=== PATIENT | female | born 1995 | race Caucasian/White ===

== ENCOUNTER 2018-08-12 04:10 | Emergency (ER) | payer OTHER, SELFPAY ==
[2018-08-12 04:23] VITALS: BP 143/89; PULSE 112; RESP 22; TEMP 36.1; O2SAT 97
[2018-08-12 04:49] VITALS: PULSE 112; RESP 22; TEMP 36.1; O2SAT 97; BMI 21.1
[2018-08-12 05:25] LABS: Add Manual Diff / Slide Review NO; Basophils Percent Auto 0.4 % (0-2); Eosinophils Percent Auto 2.1 % (2-4); Hemoglobin 13.7 g/dL (12.0-16.0); Lymphocytes Percent Auto 15.3 % (25-40); Mean Corpuscular HGB Conc 34.2 % (30-36); Mean Corpuscular Hemoglobin 28.3 PG (26-34); Mean Corpuscular Volume 82.7 fL (80-100); Neutrophils Absolute Auto 11300 /uL (3000-5900); Neutrophils Percent Auto 73.2 % (50-75); Platelet Count 410 X10^3/uL (150-400); Red Blood Cell Count 4.83 X10^6/uL (4.0-5.2); Red Cell Distribution Width 12.9 % (11.6-14.8); White Blood Cell Count 15.4 X10^3/uL (4.5-11.0)
[2018-08-12 05:30] LABS: INR 1.2 (0.9-1.3); Prothrombin Time 12.7 SECONDS (10.1-12.7)
[2018-08-12 05:33] LABS: PTT Partial Thromboplastin Tim 31 SECONDS (26.4-36.2)
[2018-08-12 05:34] LABS: Alanine Aminotransferase 19 IU/L (9-52); Albumin Globulin Ratio 1.2 (1.0-2.8); Alkaline Phosphatase 54 U/L (38-126); Aspartate Aminotransferase 20 IU/L (14-36); Bilirubin Total 0.3 mg/dL (0.2-1.3); Blood Urea Nitrogen 7 mg/dL (7-17); Calcium 8.9 mg/dL (8.4-10.2); Carbon Dioxide 23 mmol/L (22-32); Chloride 104 mmol/L (98-107); Estimated Glomerular Filt Rate > 60.0 mL/min (>60); Globulin 3.3 g/dL (1.7-4.1); Glucose 105 mg/dL (70-100); HEMOLYSIS < 15 (0-50); Lipase 81 U/L (23-300); Potassium 3.3 mmol/L (3.4-5.1); Sodium 139 mmol/L (137-145); Total Protein 7.3 g/dL (6.3-8.2)
[2018-08-12] MEDS: SODIUM CHLORIDE 0.9% 1,000 ML 1000 ML IV (05:38)
[2018-08-12] MEDS: ONDANSETRON 4 MG/2 ML INJ IV (05:38)
[2018-08-12] MEDS: KETOROLAC 60 MG/2 ML VIAL 30 MG IV (05:38)
[2018-08-12 06:37] LABS: Bacteria Urine Many (>30); Culture Indicated Urine Cult Not Indicated; Mucus Urine 3+ (Negative); RBC Urine 5-10/HPF (0-5/HPF); Squamous Epithelial Cell Urine 10-30 /HPF; WBC Urine 1-5/HPF (0-5/HPF)
--- NOTE | 2018-08-12 06:51 | DI.CT.S_ITS ---
PROCEDURE: CT ABDOMEN PELVIS W CON INDICATIONS: right flank pain TECHNIQUE: After the administration of intravenous contrast, 5 mm thick sections acquired from the diaphragm to the symphysis. 5 mm coronal and sagittal reformats were acquired. For radiation dose reduction, the following was used: automated exposure control, adjustment of mA and/or kV according to patient size. COMPARISON: None. FINDINGS: Image quality: Excellent. ABDOMEN: Lung bases: Lung bases are clear. Heart size is normal. Solid organs: Liver is normal in size and enhancement. Gallbladder is normal. Biliary system is non dilated. Pancreas enhances normally. Spleen is normal in size and enhancement. No adrenal nodules. Kidneys demonstrate normal size and enhancement, without hydronephrosis. Peritoneum and bowel: There is diffuse colonic wall thickening involving the cecum, ascending colon, hepatic flexure, transverse colon, and splenic flexure, as well as descending colon. There is increased mucosal enhancement in sigmoid colon. Findings are consistent with colitis. The appendix and terminal appear normal. Bowel loops demonstrate normal wall thickness and caliber. No free fluid or air. Nodes and vessels: No retroperitoneal or mesenteric adenopathy by size criteria. Prominent mesenteric lymph nodes measure up to 9 mm in short axis within the right lower quadrant, likely reactive. Aorta and inferior vena cava are normal in size. Miscellaneous: No ventral hernias. PELVIS: Genitourinary: Bladder wall thickness is normal. Miscellaneous: No inguinal hernias or adenopathy. Bones: No suspicious bony lesions. No vertebral body compression fractures. IMPRESSION: 1. Diffuse colonic wall thickening of the cecum, ascending colon, hepatic flexure, transverse colon, spleen fracture and descending colon and possible involvement of the sigmoid colon, consistent with colitis. Differential diagnoses include infectious etiology versus inflammatory bowel disease. 2. Normal CT appendix and terminal ileum. 3. Reactive mesenteric lymph nodes in the right lower quadrant. No significant discrepancy with the lieutenant shift supervisor radiology preliminary report. Dictated by: Gillian Andrews M.D. on 08/12/2018 at 7:45 Transcribed by: LG on 08/12/2018 at 7:48 Approved by: Gillian Andrews M.D. on 08/12/2018 at 9:08
[2018-08-12 07:39] VITALS: BP 112/76; PULSE 74; RESP 14; O2SAT 100
--- NOTE | 2018-08-12 07:57 | ED_ITS ---
HPI - Abdominal Pain <DO Chris Matias Last Filed: 08/12/18 18:15> General Chief Complaint: Abdominal Pain Stated Complaint: abdominal pain, nausea/dry vomiting/blood in stool Time Seen by Provider: 08/12/18 05:04 Source: patient Mode of arrival: ambulatory Limitations: no limitations History of Present Illness HPI narrative: Patient is a 22-year-old female who presents with diarrhea and vomiting and right lower quadrant pain. She has had some blood in her stool as well. No fever or chills. She has had multiple episodes of diarrhea. They just noticed evening came to the ED. She is also having more intense right lower quadrant pain. MD complaint: abdominal pain Related Data Previous Rx's Medication Instructions Recorded ondansetron [Zofran ODT] 4 mg PO BID-TID PRN #10 tab 08/12/18 Allergies Allergy/AdvReac Type Severity Reaction Status Date / Time Penicillins Allergy Unknown Verified 08/12/18 06:11 Review of Systems <DO Chris Matias Last Filed: 08/12/18 18:15> Review of Systems GENERAL: Denies chills, fatigue, malaise, fever, sweats, travel HEENT: Denies sinus pain, ear pain, sore throat, difficulty swallowing, neck pain RESPIRATORY: Denies dyspnea, cough, wheezing, hemoptysis, sputum. CARDIOVASCULAR: Denies chest pain, palpitations, orthopnea, edema GASTROINTESTINAL: See HPI : Denies dysuria, frequency, incontinence, hematuria, urinary retention, flank pain. MUSCULOSKELETAL: Denies weakness, joint pain, or bony pain SKIN: No rash, no erythema, no pruritus NEUROLOGIC: Denies weakness, dizziness, headache, numbness, change in speech, confusion PSYCHIATRIC: No concerning psychosocial issues. 12 point review of systems is negative except for those stated above and HPI Exam <DO Chris Matias Last Filed: 08/12/18 18:15> Initial Vital Signs Initial Vital Signs: Vital Signs Temperature 97 F L 08/12/18 04:23 Pulse Rate 112 H 08/12/18 04:23 Respiratory Rate 22 08/12/18 04:23 Blood Pressure 143/89 H 08/12/18 04:23 Pulse Oximetry 97 08/12/18 04:23 GENERAL: Well-appearing, well-nourished and in no acute distress. HEENT: Head atraumatic,EOMI, pupils reactive, face symmetric, moist mucous membranes CARDIOVASCULAR: Regular rate and rhythm without murmurs, rubs or gallops. RESPIRATORY: Breath sounds equal bilaterally, no wheezes rales or rhonchi. ABDOMEN: Soft, mild right lower quadrant pain without guarding or rebound no flank pain negative Smith sign EXTREMITIES: Normal range of motion, no clubbing or edema. Neurovascularly intact NEUROLOGICAL: Alert and oriented x4.Normal gait and speech. Cranial nerves II through XII grossly intact. SKIN: Warm, dry, no laceration, no petechiae, no rashes or lesions. <Hoang Mendoza DO - Last Filed: 08/12/18 09:02> Initial Vital Signs Initial Vital Signs: Vital Signs Temperature 97 F L 08/12/18 04:23 Pulse Rate 112 H 08/12/18 04:23 Respiratory Rate 22 08/12/18 04:23 Blood Pressure 143/89 H 08/12/18 04:23 Pulse Oximetry 97 08/12/18 04:23 Course <Nancy Alvarez DO - Last Filed: 08/12/18 18:15> Orders Ordered: Discontinued Medications Hydrocodone Bitart/Acetaminophen ([place] 5/325) 1 tab PO NOW ONE Stop: 08/12/18 08:42 Sodium Chloride (Normal Saline 0.9%) 1,000 mls @ 1,000 mls/hr IV CONT PRESTON Last Infusion: 08/12/18 09:40 Dose: 0 mls/hr Infusion: 08/12/18 08:58 Dose: 0 mls/hr Admin: 08/12/18 05:38 Dose: 1,000 mls/hr Ketorolac Tromethamine (Toradol) 30 mg IV NOW ONE Stop: 08/12/18 05:11 Last Admin: 08/12/18 05:38 Dose: 30 mg Ondansetron HCl (Zofran) 4 mg IV NOW ONE Stop: 08/12/18 05:11 Last Admin: 08/12/18 05:38 Dose: 4 mg Vital Signs - 8 hr 08/12/18 04:23 08/12/18 04:49 08/12/18 07:39 Temperature 97 F L 97 F L Pulse Rate 112 H 112 H 74 Respiratory Rate 22 22 14 Blood Pressure [Left Arm] 143/89 H 112/76 Pulse Oximetry 97 97 100 <Hoang Mendoza DO - Last Filed: 08/12/18 09:02> Orders Ordered: Discontinued Medications Hydrocodone Bitart/Acetaminophen ([place] 5/325) 1 tab PO NOW ONE Stop: 08/12/18 08:42 Sodium Chloride (Normal Saline 0.9%) 1,000 mls @ 1,000 mls/hr IV CONT PRESTON Last Infusion: 08/12/18 09:40 Dose: 0 mls/hr Infusion: 08/12/18 08:58 Dose: 0 mls/hr Admin: 08/12/18 05:38 Dose: 1,000 mls/hr Ketorolac Tromethamine (Toradol) 30 mg IV NOW ONE Stop: 08/12/18 05:11 Last Admin: 08/12/18 05:38 Dose: 30 mg Ondansetron HCl (Zofran) 4 mg IV NOW ONE Stop: 08/12/18 05:11 Last Admin: 08/12/18 05:38 Dose: 4 mg Vital Signs - 8 hr 08/12/18 04:23 08/12/18 04:49 08/12/18 07:39 Temperature 97 F L 97 F L Pulse Rate 112 H 112 H 74 Respiratory Rate 22 22 14 Blood Pressure [Left Arm] 143/89 H 112/76 Pulse Oximetry 97 97 100 MDM - Abdominal Pain <Nancy Alvarez DO - Last Filed: 08/12/18 18:15> Lab Data Attestation: I reviewed the patient's lab results. Result diagrams: 08/12/18 04:47 08/12/18 04:47 Lab Results 08/12/18 08/12/18 08/12/18 Range/Units 04:26 04:47 04:47 WBC 15.4 H (4.5-11.0) X10^3/uL RBC 4.83 (4.0-5.2) X10^6/uL Hgb 13.7 (12.0-16.0) g/dL Hct 40.0 (36-46) % MCV 82.7 (80-100) fL MCH 28.3 (26-34) PG MCHC 34.2 (30-36) % RDW 12.9 (11.6-14.8) % Plt Count 410 H (150-400) X10^3/uL Neut % (Auto) 73.2 (50-75) % Lymph % (Auto) 15.3 L (25-40) % [place] % (Auto) 9.0 (3-14) % Eos % (Auto) 2.1 (2-4) % Baso % (Auto) 0.4 (0-2) % Neut # (Auto) 90446 H (4676-0722) /uL PT 12.7 (10.1-12.7) SECONDS INR 1.2 (0.9-1.3) APTT 31 (26.4-36.2) SECONDS Sodium (137-145) mmol/L Potassium (3.4-5.1) mmol/L Chloride (98-107) mmol/L Carbon Dioxide (22-32) mmol/L BUN (7-17) mg/dL Creatinine (0.52-1.04) mg/dL Estimated GFR (>60) mL/min BUN/Creatinine Ratio (6-22) Glucose (70-100) mg/dL Calcium (8.4-10.2) mg/dL Total Bilirubin (0.2-1.3) mg/dL AST (14-36) IU/L ALT (9-52) IU/L Alkaline Phosphatase (38-126) U/L Total Protein (6.3-8.2) g/dL Albumin (3.5-5.0) g/dL Globulin (1.7-4.1) g/dL Albumin/Globulin Ratio (1.0-2.8) Lipase (23-300) U/L Urine RBC 5-10/hpf H (0-5/HPF) Urine WBC 1-5/hpf (0-5/HPF) Ur Squamous Epith Cells 10-30 /hpf H Urine Bacteria Many (>30) H (None) Urine Mucus 3+ H (Negative) Ur Culture Indicated? Cult not indicated Micro UA Comment Not Reportable Stool Aeromonas Cult (Not Detect) Stl C. cayetanensis PCR (Not Detect) Stool Rotavirus (PCR) (Not Detect) Stool Adenovirus (PCR) (Not Detect) Stool Astrovirus (PCR) (Not Detect) Stool Cryptosporidium PCR (Not Detect) Stl E.coli Shiga Tox PCR (Not Detect) St Sh/Enteroin Ecoli PCR (Not Detect) Stool E coli O157 PCR (Not Detect) Stl Enterotoxigenic E PCR (Not Detect) Stool EPEC (PCR) Stl E. histolytica PCR (Not Detect) Stool Giardia Lamblia PCR (Not Detect) Stool Sapovirus (PCR) (Not Detect) Stl P. shigelloides PCR (Not Detect) St Y.enterocolitica PCR (Not Detect) Stool Vibrio (PCR) (Not Detect) Stl Vibrio cholerae PCR (Not Detect) Stl Enteroaggr Ecoli PCR (Not Detect) Stl Norovirus GI/GII PCR (Not Detect) Campylobacter (PCR) (Not Detect) C. difficile Tox (PCR) (Not Detect) Salmonella (PCR) (Not Detect) 08/12/18 08/12/18 Range/Units 04:47 06:55 WBC (4.5-11.0) X10^3/uL RBC (4.0-5.2) X10^6/uL Hgb (12.0-16.0) g/dL Hct (36-46) % MCV (80-100) fL MCH (26-34) PG MCHC (30-36) % RDW (11.6-14.8) % Plt Count (150-400) X10^3/uL Neut % (Auto) (50-75) % Lymph % (Auto) (25-40) % [place] % (Auto) (3-14) % Eos % (Auto) (2-4) % Baso % (Auto) (0-2) % Neut # (Auto) (2243-3743) /uL PT (10.1-12.7) SECONDS INR (0.9-1.3) APTT (26.4-36.2) SECONDS Sodium 139 (137-145) mmol/L Potassium 3.3 L (3.4-5.1) mmol/L Chloride 104 (98-107) mmol/L Carbon Dioxide 23 (22-32) mmol/L BUN 7 (7-17) mg/dL Creatinine 0.70 (0.52-1.04) mg/dL Estimated GFR > 60.0 (>60) mL/min BUN/Creatinine Ratio 10.0 (6-22) Glucose 105 H (70-100) mg/dL Calcium 8.9 (8.4-10.2) mg/dL Total Bilirubin 0.3 (0.2-1.3) mg/dL AST 20 (14-36) IU/L ALT 19 (9-52) IU/L Alkaline Phosphatase 54 (38-126) U/L Total Protein 7.3 (6.3-8.2) g/dL Albumin 4.0 (3.5-5.0) g/dL Globulin 3.3 (1.7-4.1) g/dL Albumin/Globulin Ratio 1.2 (1.0-2.8) Lipase 81 (23-300) U/L Urine RBC (0-5/HPF) Urine WBC (0-5/HPF) Ur Squamous Epith Cells Urine Bacteria (None) Urine Mucus (Negative) Ur Culture Indicated? Micro UA Comment Stool Aeromonas Cult Awaiting culture res (Not Detect) Stl C. cayetanensis PCR Not detected (Not Detect) Stool Rotavirus (PCR) Not detected (Not Detect) Stool Adenovirus (PCR) Not detected (Not Detect) Stool Astrovirus (PCR) Not detected (Not Detect) Stool Cryptosporidium PCR Not detected (Not Detect) Stl E.coli Shiga Tox PCR Detected H (Not Detect) St Sh/Enteroin Ecoli PCR Not detected (Not Detect) Stool E coli O157 PCR Detected H (Not Detect) Stl Enterotoxigenic E PCR Not detected (Not Detect) Stool EPEC (PCR) Not Reportable Stl E. histolytica PCR Not detected (Not Detect) Stool Giardia Lamblia PCR Not detected (Not Detect) Stool Sapovirus (PCR) Not detected (Not Detect) Stl P. shigelloides PCR Not detected (Not Detect) St Y.enterocolitica PCR Not detected (Not Detect) Stool Vibrio (PCR) Not detected (Not Detect) Stl Vibrio cholerae PCR Not detected (Not Detect) Stl Enteroaggr Ecoli PCR Not detected (Not Detect) Stl Norovirus GI/GII PCR Not detected (Not Detect) Campylobacter (PCR) Not detected (Not Detect) C. difficile Tox (PCR) Not detected (Not Detect) Salmonella (PCR) Not detected (Not Detect) Point of care testing: Point of Care Testing Test Results Negative Urine Dip Bedside Urine Glucose Negative Bedside Urine Bilirubin - Negative Bedside Urine Ketone - Negative Urine Specific [place] 1.030 Bedside Urine Occult Blood ++ Bedside Urine pH 5.5 Bedside Urine Protein +/- 15 Bedside Urine Urobilinogen - Negative Bedside Urine Nitrite - Negative Bedside Urine Leukocytes - Negative Esterase MDM Narrative Medical decision making narrative: Patient signed out to Dr. Mendoza awaiting CT and GI panel. Probable gastroenteritis <Hoang Mendoza, DO - Last Filed: 08/12/18 09:02> Lab Data Attestation: I reviewed the patient's lab results. Lab Results 08/12/18 08/12/18 08/12/18 Range/Units 04:26 04:47 04:47 WBC 15.4 H (4.5-11.0) X10^3/uL RBC 4.83 (4.0-5.2) X10^6/uL Hgb 13.7 (12.0-16.0) g/dL Hct 40.0 (36-46) % MCV 82.7 (80-100) fL MCH 28.3 (26-34) PG MCHC 34.2 (30-36) % RDW 12.9 (11.6-14.8) % Plt Count 410 H (150-400) X10^3/uL Neut % (Auto) 73.2 (50-75) % Lymph % (Auto) 15.3 L (25-40) % [place] % (Auto) 9.0 (3-14) % Eos % (Auto) 2.1 (2-4) % Baso % (Auto) 0.4 (0-2) % Neut # (Auto) 17087 H (8412-9947) /uL PT 12.7 (10.1-12.7) SECONDS INR 1.2 (0.9-1.3) APTT 31 (26.4-36.2) SECONDS Sodium (137-145) mmol/L Potassium (3.4-5.1) mmol/L Chloride (98-107) mmol/L Carbon Dioxide (22-32) mmol/L BUN (7-17) mg/dL Creatinine (0.52-1.04) mg/dL Estimated GFR (>60) mL/min BUN/Creatinine Ratio (6-22) Glucose (70-100) mg/dL Calcium (8.4-10.2) mg/dL Total Bilirubin (0.2-1.3) mg/dL AST (14-36) IU/L ALT (9-52) IU/L Alkaline Phosphatase (38-126) U/L Total Protein (6.3-8.2) g/dL Albumin (3.5-5.0) g/dL Globulin (1.7-4.1) g/dL Albumin/Globulin Ratio (1.0-2.8) Lipase (23-300) U/L Urine RBC 5-10/hpf H (0-5/HPF) Urine WBC 1-5/hpf (0-5/HPF) Ur Squamous Epith Cells 10-30 /hpf H Urine Bacteria Many (>30) H (None) Urine Mucus 3+ H (Negative) Ur Culture Indicated? Cult not indicated Micro UA Comment Not Reportable Stool Aeromonas Cult (Not Detect) Stl C. cayetanensis PCR (Not Detect) Stool Rotavirus (PCR) (Not Detect) Stool Adenovirus (PCR) (Not Detect) Stool Astrovirus (PCR) (Not Detect) Stool Cryptosporidium PCR (Not Detect) Stl E.coli Shiga Tox PCR (Not Detect) St Sh/Enteroin Ecoli PCR (Not Detect) Stool E coli O157 PCR (Not Detect) Stl Enterotoxigenic E PCR (Not Detect) Stool EPEC (PCR) Stl E. histolytica PCR (Not Detect) Stool Giardia Lamblia PCR (Not Detect) Stool Sapovirus (PCR) (Not Detect) Stl P. shigelloides PCR (Not Detect) St Y.enterocolitica PCR (Not Detect) Stool Vibrio (PCR) (Not Detect) Stl Vibrio cholerae PCR (Not Detect) Stl Enteroaggr Ecoli PCR (Not Detect) Stl Norovirus GI/GII PCR (Not Detect) Campylobacter (PCR) (Not Detect) C. difficile Tox (PCR) (Not Detect) Salmonella (PCR) (Not Detect) 08/12/18 08/12/18 Range/Units 04:47 06:55 WBC (4.5-11.0) X10^3/uL RBC (4.0-5.2) X10^6/uL Hgb (12.0-16.0) g/dL Hct (36-46) % MCV (80-100) fL MCH (26-34) PG MCHC (30-36) % RDW (11.6-14.8) % Plt Count (150-400) X10^3/uL Neut % (Auto) (50-75) % Lymph % (Auto) (25-40) % [place] % (Auto) (3-14) % Eos % (Auto) (2-4) % Baso % (Auto) (0-2) % Neut # (Auto) (1321-5309) /uL PT (10.1-12.7) SECONDS INR (0.9-1.3) APTT (26.4-36.2) SECONDS Sodium 139 (137-145) mmol/L Potassium 3.3 L (3.4-5.1) mmol/L Chloride 104 (98-107) mmol/L Carbon Dioxide 23 (22-32) mmol/L BUN 7 (7-17) mg/dL Creatinine 0.70 (0.52-1.04) mg/dL Estimated GFR > 60.0 (>60) mL/min BUN/Creatinine Ratio 10.0 (6-22) Glucose 105 H (70-100) mg/dL Calcium 8.9 (8.4-10.2) mg/dL Total Bilirubin 0.3 (0.2-1.3) mg/dL AST 20 (14-36) IU/L ALT 19 (9-52) IU/L Alkaline Phosphatase 54 (38-126) U/L Total Protein 7.3 (6.3-8.2) g/dL Albumin 4.0 (3.5-5.0) g/dL Globulin 3.3 (1.7-4.1) g/dL Albumin/Globulin Ratio 1.2 (1.0-2.8) Lipase 81 (23-300) U/L Urine RBC (0-5/HPF) Urine WBC (0-5/HPF) Ur Squamous Epith Cells Urine Bacteria (None) Urine Mucus (Negative) Ur Culture Indicated? Micro UA Comment Stool Aeromonas Cult Awaiting culture res (Not Detect) Stl C. cayetanensis PCR Not detected (Not Detect) Stool Rotavirus (PCR) Not detected (Not Detect) Stool Adenovirus (PCR) Not detected (Not Detect) Stool Astrovirus (PCR) Not detected (Not Detect) Stool Cryptosporidium PCR Not detected (Not Detect) Stl E.coli Shiga Tox PCR Detected H (Not Detect) St Sh/Enteroin Ecoli PCR Not detected (Not Detect) Stool E coli O157 PCR Detected H (Not Detect) Stl Enterotoxigenic E PCR Not detected (Not Detect) Stool EPEC (PCR) Not Reportable Stl E. histolytica PCR Not detected (Not Detect) Stool Giardia Lamblia PCR Not detected (Not Detect) Stool Sapovirus (PCR) Not detected (Not Detect) Stl P. shigelloides PCR Not detected (Not Detect) St Y.enterocolitica PCR Not detected (Not Detect) Stool Vibrio (PCR) Not detected (Not Detect) Stl Vibrio cholerae PCR Not detected (Not Detect) Stl Enteroaggr Ecoli PCR Not detected (Not Detect) Stl Norovirus GI/GII PCR Not detected (Not Detect) Campylobacter (PCR) Not detected (Not Detect) C. difficile Tox (PCR) Not detected (Not Detect) Salmonella (PCR) Not detected (Not Detect) Point of care testing: Point of Care Testing Test Results Negative Urine Dip Bedside Urine Glucose Negative Bedside Urine Bilirubin - Negative Bedside Urine Ketone - Negative Urine Specific [place] 1.030 Bedside Urine Occult Blood ++ Bedside Urine pH 5.5 Bedside Urine Protein +/- 15 Bedside Urine Urobilinogen - Negative Bedside Urine Nitrite - Negative Bedside Urine Leukocytes - Negative Esterase MDM Narrative Medical decision making narrative: received turned over from night provider. I performed my own history and physical exam. Patient states she feels much better after the Zofran and fluids. The stool results came back as E coli. CT result is consistent with this. Given the known cause of the symptoms will hold on any antibiotics. Will send home with anti nausea medication. I discussed this with the patient and the mother who were at bedside. The discussed the importance of increasing fluid intake. They were given return precautions. Patient has no symptoms consistent with EKG with HUS. Patient and mother expressed understanding and agreement plan. Discharge Plan Departure Patient Disposition: Home Clinical Impression: Colitis Discharge Date/Time: 08/12/18 09:30 Interventions: ED Discharge Assessment Last Done: 08/12/18 09:42 Instructions: DI for Colitis Activity Restrictions/Additional Instructions: You need to make sure your increasing your fluid intake. Call your primary care doctor for a follow-up. Make sure you are washing your hands frequently. Return to the emergency department for any new or worsening symptoms Prescriptions: New ondansetron [Zofran ODT] 4 mg tablet,disintegrating 4 mg PO BID-TID PRN (Reason: nausea and vomiting) Qty: 10 RF: 0
[2018-08-12 08:39] LABS: Campylobacter Not Detected (Not Detect); Clostridium difficile toxin AB Not Detected (Not Detect); Enteroaggregative E.coli Not Detected (Not Detect); Enterotoxigenic E.coli It/st Not Detected (Not Detect); Plesiomonsa shigelloides Not Detected (Not Detect); Salmonella Not Detected (Not Detect); Vibrio Not Detected (Not Detect); Vibrio cholerae Not Detected (Not Detect); Yersinia enterocolitica Not Detected (Not Detect)
[2018-08-12 08:40] LABS: Adenovirus F 40/41 Not Detected (Not Detect); Astrovirus Not Detected (Not Detect); Cryptosporidium Not Detected (Not Detect); Cyclospora cayetanensis Not Detected (Not Detect); Entamoeba histolytica Not Detected (Not Detect); Giardia lamblia Not Detected (Not Detect); Norovirus GI/GII Not Detected (Not Detect); Rotavirus A Not Detected (Not Detect); Sapovirus Not Detected (Not Detect); Shiga-like toxin-prod E.coli Detected (Not Detect); Shigella/Enteroinvasive E.coli Not Detected (Not Detect)
[2018-08-12 09:28] VITALS: BP 102/66; PULSE 76; RESP 16; TEMP 36.9; O2SAT 100
== END 2018-08-12 09:30 | disposition home or self-care (01) ==
PROVIDERS: Emergency Medicine; Emergency Provider Emergency Medicine
DX: K52.9 Noninfective gastroenteritis and colitis, unspecified (principal)
CPT/HCPCS: 36591; 74177; 80053; 81003; 81015; 81025; 83690; 85025; 85610; 85730; 87507; 96361; 96374; 96375; 99283; 99285; J1885; J2405; Q9967